=== PATIENT | female | born 1955 | race Two or more races ===

== ENCOUNTER 2018-03-11 13:57 | Emergency (ER) | payer MEDICAID ==
[~2018-03-11] VITALS: Ht 162.6 cm; Wt 65.8 kg
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
[2018-03-11] MEDS ORDERED: ACETAMINOPHEN ES 500 MG TABLET PO ONE (14:30)
--- NOTE | 2018-03-11 14:41 | NUR ---
XRAY AT BEDSIDE
--- NOTE | 2018-03-11 18:26 | NUR ---
Patient discharged to home in stable condition. Written and verbal after care instructions given. Patient verbalizes understanding of instruction. PT AMBULATED WITH STEADY GAIT UPON DC.
[2018-03-11 18:27] VITALS: BP 140/90
== END 2018-03-11 18:28 | disposition home or self-care (01) ==
LOC: ER 13:59
DX: M25.552 Pain in left hip (principal); I10 Essential (primary) hypertension; E03.9 Hypothyroidism, unspecified; Z85.3 Personal history of malignant neoplasm of breast; V49.9XXA Car occupant (driver) (passenger) injured in unspecified traffic accident, initial encounter; Y93.89 Activity, other specified; Y92.413 State road as the place of occurrence of the external cause; Y99.8 Other external cause status
CPT/HCPCS: 72040; 73503; 73700; 99284; A4606; Z7610; 73502

== ENCOUNTER 2019-01-05 11:15 | Emergency (ER) | payer MEDICAID ==
[~2019-01-05] VITALS: Ht 157.5 cm; Wt 65.8 kg
[2019-01-05 11:51] VITALS: BP 144/85
== END 2019-01-05 12:40 | disposition home or self-care (01) ==
LOC: ER 11:16
DX: S61.217A Laceration without foreign body of left little finger without damage to nail, initial encounter (principal); I10 Essential (primary) hypertension; W26.0XXA Contact with knife, initial encounter; Y93.89 Activity, other specified; Y92.89 Other specified places as the place of occurrence of the external cause; Y99.8 Other external cause status